=== PATIENT | male | born 1940 | race Caucasian/White ===

== ENCOUNTER → 2023-12-05 11:44 | Outpatient (REF) | payer MEDICARE, SELFPAY | LOC: RAD 11:44 | PROVIDERS: ATTENDING PHYSICIAN Otolaryngology; FAMILY PHYSICIAN Family Medicine | DX: R05.3 Chronic cough (principal) | CPT/HCPCS: 71046 ==

== ENCOUNTER → 2023-12-22 11:14 | Outpatient (REF) | payer MEDICARE, SELFPAY | LOC: HWRAD 11:14 | PROVIDERS: ATTENDING PHYSICIAN Internal Medicine Pulmonary Disease; FAMILY PHYSICIAN Family Medicine | DX: J84.9 Interstitial pulmonary disease, unspecified (principal) | CPT/HCPCS: 71250 ==

== ENCOUNTER → 2024-01-13 07:41 | Outpatient (REF) | payer MEDICARE, SELFPAY | LOC: RSP 07:41 | PROVIDERS: ATTENDING PHYSICIAN Internal Medicine Pulmonary Disease; FAMILY PHYSICIAN Family Medicine | DX: J84.9 Interstitial pulmonary disease, unspecified (principal) | CPT/HCPCS: 94727; 94729; 94060 ==

== ENCOUNTER → 2024-04-06 06:55 | Outpatient (REF) | payer MEDICARE, SELFPAY | LOC: HWRAD 06:55 | PROVIDERS: ATTENDING PHYSICIAN Otolaryngology; FAMILY PHYSICIAN Family Medicine | DX: R05.3 Chronic cough (principal); R09.82 Postnasal drip | CPT/HCPCS: 70486 ==